=== PATIENT | female | born 1960 | race Caucasian/White ===

== ENCOUNTER 2016-12-19 07:55 | Day surgery (SDC) | payer SELFPAY ==
[~2016-12-19] VITALS: Ht 162.6 cm; Wt 135.0 kg
[~2016-12-19 07:55] MED LIST: ALEVE 220MG220 MG; BUDEPRION XL150 MG PO; CIPRO 500MG TA500 MG PO; COZAAR 50MG50 MG/TAB PO; FLAGYL500 MG PO; GLUCOPHAGE1000 MG PO; LEVEMIR100 U/ML SQ; NORCO 325 MG-51 TAB PO; UNABLE; VICTOZA6 MG/ML SQ; WELLBUTRIN XL150 MG PO; ZOCOR 10MG10 MG PO; ZOFRAN 4MG T4 MG/TAB PO; ZOLOFT 50MG50 MG PO
[2016-12-19] MEDS ORDERED: VICTOZA6 MG/ML SQ (08:45)
[2016-12-19] MEDS ORDERED: ZOCOR 40MG40 MG PO (08:47)
[2016-12-19] MEDS ORDERED: COZAAR100 MG PO (08:48)
[2016-12-19] MEDS ORDERED: KLONOPIN 1MG1 MG PO (08:49)
[2016-12-19 08:53] VITALS: BP 129/59; PULSE 67; TEMP 97.3
[2016-12-19 09:17] VITALS: BP 125/74; PULSE 64; PULSE 71; TEMP 97.4
[2016-12-19 09:45] VITALS: BP 119/65; PULSE 63
== END 2016-12-19 10:05 | disposition home or self-care (01) ==
LOC: SDCO 07:55
DX: K64.0 First degree hemorrhoids (principal); K57.30 Diverticulosis of large intestine without perforation or abscess without bleeding; E11.9 Type 2 diabetes mellitus without complications; E78.00 Pure hypercholesterolemia, unspecified; G47.30 Sleep apnea, unspecified; I10 Essential (primary) hypertension; Z79.84 Long term (current) use of oral hypoglycemic drugs; Z79.4 Long term (current) use of insulin; Z87.891 Personal history of nicotine dependence
CPT/HCPCS: OP; J2250; J3010; J7030

== ENCOUNTER 2017-09-16 23:06 | Emergency (ER) | payer SELFPAY ==
[~2017-09-16] VITALS: Ht 162.6 cm; Wt 136.4 kg
[~2017-09-16 23:06] MED LIST changes: +COZAAR100 MG PO; +KLONOPIN 1MG1 MG PO; +ZOCOR 40MG40 MG PO
[2017-09-16 23:10] VITALS: TEMP 99.8
[2017-09-17 00:06] LABS: BASO % 0.5 % (0.0-2.0); EOS # 0.2 (0.0-0.7); EOS % 2.4 % (0-4.0); GRAN # 5.3 (1.4-6.5); GRAN % 67.6 % (42.2-75.2); LYMPH # 1.6 (1.2-3.4); LYMPH % 20.7 % (20.0-51.0); MEAN CELL VOLUME 91 fl (80.0-100.0); MEAN CORPUSCULAR HGB CONC 31 g/dl (33.0-37.0); MONO # 0.6 (0.1-0.6); MONO % 7.8 % (1.7-9.3); PLATELET COUNT 168 K/mm3 (130-400); RED BLOOD COUNT 3.84 M/mm3 (4.10-5.30); WHITE BLOOD COUNT 7.9 K/mm3 (4.8-10.8)
[2017-09-17 00:08] LABS: HEMATOCRIT 34.8 % (37.0-47.0); HEMOGLOBIN 10.9 g/dl (12.5-16.0); MEAN CORPUSCULAR HEMOGLOBIN 28 pg (27.0-31.0)
[2017-09-17 00:12] LABS: PROTHROMBIN TIME 11.3 SECONDS (9.7-12.8)
[2017-09-17 00:15] LABS: PARTIAL THROMBOPLASTIN TIME 36.6 SECONDS (26.0-37.0)
[2017-09-17 00:17] LABS: ADJUSTED CALCIUM 9.6 mg/dL (8.4-10.2); ALANINE AMINOTRANSFERASE 42 U/L (9-52); ALBUMIN 3.8 gm/dL (3.5-5.0); ALKALINE PHOSPHATASE 144 U/L (50-136); ANION GAP 12 mmol/L (7-16); BILIRUBIN,TOTAL 0.4 mg/dL (0.0-1.0); BLOOD UREA NITROGEN 20 mg/dL (7-17); CALCIUM 9.4 mg/dL (8.4-10.2); CARBON DIOXIDE 22 mmol/L (22-30); CHLORIDE 103 mmol/L (98-107); CREATININE, serum 0.69 mg/dL (0.52-1.25); GLUCOSE 295 mg/dL (74-106); POTASSIUM 4.2 mmol/L (3.4-5.0); SODIUM 137 mmol/L (137-145); TOTAL PROTEIN 6.6 gm/dL (6.4-8.2)
[2017-09-17] MEDS ORDERED: ACTOS 15MG TAB15 MG PO (00:17)
[2017-09-17] MEDS ORDERED: GLUCOTROL10 MG PO (00:18)
[2017-09-17] MEDS ORDERED: ACTOS30 MG PO (00:18)
[2017-09-17 00:28] LABS: INFLUENZA A NEGATIVE; INFLUENZA B NEGATIVE
[2017-09-17 00:29] LABS: TROPONIN-I < 0.012 ng/mL (0.000-0.034)
[2017-09-17 02:22] VITALS: BP 171/89; PULSE 90
== END 2017-09-17 02:23 | disposition home or self-care (01) ==
LOC: COL.ER 23:06
PROVIDERS: Emergency Medicine
DX: J06.9 Acute upper respiratory infection, unspecified (principal); F41.9 Anxiety disorder, unspecified; E11.9 Type 2 diabetes mellitus without complications; E78.5 Hyperlipidemia, unspecified; I10 Essential (primary) hypertension; J45.909 Unspecified asthma, uncomplicated; Z87.891 Personal history of nicotine dependence; Z79.4 Long term (current) use of insulin
CPT/HCPCS: J7030

== ENCOUNTER 2019-05-07 06:49 | Day surgery (SDC) | payer OTHER ==
[~2019-05-07] VITALS: Ht 162.6 cm; Wt 130.0 kg
[2019-05-07] VITALS (9 sets, daily range): BP systolic 91–153; BP diastolic 33–57; PULSE 63–78; TEMP 98
[~2019-05-07 06:49] MED LIST changes: +ACTOS 15MG TAB15 MG PO; +ACTOS30 MG PO; +GLUCOTROL10 MG PO
[2019-05-07] MEDS ORDERED: FARXIGA10 PO (07:46)
[2019-05-07] MEDS ORDERED: JANUVIA 100MG100 MG PO (07:47)
[2019-05-07] MEDS ORDERED: AMARYL 2MG T2 MG/TAB PO (07:48)
[2019-05-07] MEDS ORDERED: ALEVE 220MG220 MG PO (07:49)
[2019-05-07] MEDS ORDERED: LANTUS SOLOS100 U/ML SQ (07:50)
--- NOTE | 2019-05-07 08:59 | NUR ---
Patient returns to room 6 per cart from surgery accompanied by Marichuy RN and patient arouses to verbal stimuli. Henrique wrap dressing dry on the right hand and fingers warm to touch. Temp 97.7. IV fluids infusing. Siderails up x2 and call light in reach. Spouse in room. Denies pain or nausea. Allowed to rest. Will continue to monitor.
--- NOTE | 2019-05-07 09:14 | NUR ---
Patient is sleeping and sats drop to 88% and placed on 2L per nasal cannula. States does use Cpap at night. Instructed to use today if she remains sleepy. Head flat and Yoni Olsen CRNA notified of low blood pressures. Will continue to monitor. Normal Saline infusing at 100cc/hr. Taking sip of grape juice.
[2019-05-07] MEDS ORDERED: TYLENOL W/COD1 UDTAB PO (09:15)
--- NOTE | 2019-05-07 09:29 | NUR ---
Head flat and allowed to rest. States that she remains sleepy. Spouse in room.
--- NOTE | 2019-05-07 09:44 | NUR ---
Blood pressure cuff repositioned and also manual pressure taken and unchanged. Remains on oxygen at 2L per nasal cannula. Spouse in room and will continue to monitor.
--- NOTE | 2019-05-07 09:59 | NUR ---
Resting with eyes closed and spouse in room. Taking sips of juice and water when awake.
--- NOTE | 2019-05-07 10:29 | NUR ---
More awake now and is eating few bites of muffin and drinking juice. Spouse took Tylenol #3 script to pharmacy to be filled.
--- NOTE | 2019-05-07 10:59 | NUR ---
Denies feeling dizzy or light headed. States that she feels sleepy.
--- NOTE | 2019-05-07 11:30 | NUR ---
Oxygen removed and sats 100%. Feeling less sleepy and eating muffin and drinking more juice.
--- NOTE | 2019-05-07 11:45 | NUR ---
Assisted ambulatory to the bathroom. Gait steady and is able to void and returns to room. Returns to room and IV all infused and discontinued. States that she is feeling more awake and less sleepy.
--- NOTE | 2019-05-07 12:00 | NUR ---
Patient dresses selft with minimal assist of spouse. Henrique wrap dressing dry on the right hand.
--- NOTE | 2019-05-07 12:15 | NUR ---
Given dismissal instructions and voices understanding of home cares and follow up as scheduled. Provided office number for questions and concerns.
--- NOTE | 2019-05-07 12:19 | NUR ---
Patient dismissed to home per private vehilce driven by spouse and taken to the front door per wheelchair and assisted into vehilce by RN.
== END 2019-05-07 12:19 | disposition home or self-care (01) ==
LOC: SDCO 06:49
DX: G56.01 Carpal tunnel syndrome, right upper limb (principal); M65.311 Trigger thumb, right thumb; I10 Essential (primary) hypertension; G47.33 Obstructive sleep apnea (adult) (pediatric); F32.9 Major depressive disorder, single episode, unspecified; F41.9 Anxiety disorder, unspecified; E11.9 Type 2 diabetes mellitus without complications; M19.90 Unspecified osteoarthritis, unspecified site; J44.9 Chronic obstructive pulmonary disease, unspecified; E78.00 Pure hypercholesterolemia, unspecified; G43.909 Migraine, unspecified, not intractable, without status migrainosus; Z79.84 Long term (current) use of oral hypoglycemic drugs; Z88.2 Allergy status to sulfonamides; Z88.8 Allergy status to other drugs, medicaments and biological substances; Z87.891 Personal history of nicotine dependence; Z88.5 Allergy status to narcotic agent; Z83.3 Family history of diabetes mellitus; Z82.49 Family history of ischemic heart disease and other diseases of the circulatory system; Z80.9 Family history of malignant neoplasm, unspecified
CPT/HCPCS: J0670; J0690; J1885; J2250; J2405; J2704; J3010; J7030

== ENCOUNTER → 2020-01-31 | Outpatient (CLI) | payer OTHER ==
[~2020-01-31] MED LIST changes: +ALEVE 220MG220 MG PO; +AMARYL 2MG T2 MG/TAB PO; +FARXIGA10 PO; +JANUVIA 100MG100 MG PO; +LANTUS SOLOS100 U/ML SQ; +TYLENOL W/COD1 UDTAB PO
== END ==
LOC: MC.RAD 12-17 07:45
DX: Z12.31 Encounter for screening mammogram for malignant neoplasm of breast (principal)

== ENCOUNTER 2020-08-03 10:20 | Inpatient (IN) | payer OTHER ==
[2020-08-03] VITALS (10 sets, daily range): BP systolic 109–159; BP diastolic 48–68; PULSE 54–84; TEMP 98.3–98.8
[~2020-08-03] VITALS: Ht 162.6 cm; Wt 139.1 kg
[2020-08-03 11:08] LABS: HEMATOCRIT 38.8 % (37.0-47.0); HEMOGLOBIN 12.5 g/dl (12.5-16.0); MEAN CELL VOLUME 87 fl (80.0-100.0); MEAN CORPUSCULAR HEMOGLOBIN 28 pg (27.0-31.0); MEAN CORPUSCULAR HGB CONC 32 g/dl (33.0-37.0); MEAN PLATELET VOLUME 9.8 fl (7.4-10.4); PLATELET COUNT 246 K/mm3 (130-400); RED BLOOD COUNT 4.48 M/mm3 (4.10-5.30); REDCELL DISTRIBUTION WIDTH-CV 14.3 % (11.5-14.5)
[2020-08-03 11:09] LABS: PROTHROMBIN TIME 10.9 SECONDS (9.7-12.8)
[2020-08-03 11:12] LABS: PARTIAL THROMBOPLASTIN TIME 45.4 SECONDS (26.0-37.0)
[2020-08-03 11:24] LABS: ALANINE AMINOTRANSFERASE 22 U/L (4-34); ALBUMIN 4.4 gm/dL (3.5-5.0); ALKALINE PHOSPHATASE 174 U/L (50-136); ANION GAP 11 mmol/L (7-16); AST,SGOT 25 U/L (15-37); BILIRUBIN,TOTAL 0.5 mg/dL (0.0-1.0); BLOOD UREA NITROGEN 20 mg/dL (7-17); CALCIUM 9.6 mg/dL (8.4-10.2); CARBON DIOXIDE 24 mmol/L (22-30); CHLORIDE 102 mmol/L (98-107); CREATININE, serum 0.73 (0.52-1.25); GLUCOSE 124 mg/dL (74-106); MAGNESIUM 1.6 mg/dL (1.6-2.3); POTASSIUM 4.7 mmol/L (3.4-5.0); SODIUM 137 mmol/L (137-145); TOTAL PROTEIN 7.5 gm/dL (6.4-8.2)
[2020-08-03] MEDS ORDERED: TRELEGY ELLIPT1 EACH IH (11:36)
[2020-08-03] MEDS ORDERED: NOVOLOG FLEX100 U/ML SQ (11:38)
[2020-08-03 11:39] LABS: BAND 4 % (0-10); BASOPHIL 1 % (0-2); EOSINOPHIL 4 % (0-4); LYMPHOCYTE 27 % (20.0-51.0); METAMYELOCYTE 2 % (0-0); NEUTROPHILS 59 % (42.0-75.2); PLATELET ESTIMATE NORMAL (NORMAL)
[2020-08-03] MEDS ORDERED: OZEMPIC0.25 MG/0. SQ (11:39)
[2020-08-03 11:45] LABS: TROPONIN-I < 0.012 ng/mL (0.000-0.035)
[2020-08-03] MEDS ORDERED: BASAGLAR K100 UNIT/1 SQ (13:24)
[2020-08-03] MEDS ORDERED: NOVOLOG 100U100 U/M1 SQ (13:25)
[2020-08-03] MEDS ORDERED: DIOVAN 160MG160 MG PO (13:27)
--- NOTE | 2020-08-03 15:07 | NUR ---
SEE MERGE DOCUMENTATION FOR MEDICATION ADMINISTRATION TIMES AND INTRA/POST PROCEDURE SEDATION ASSESSMENTS. RIGHT HAND BARBEAU TEST POSITIVE.
--- NOTE | 2020-08-03 16:00 | NUR ---
PATIENT IS A&O. VSS. DENIES CHEST PAIN OR SOA. VSS WITH TELE INPLACE. PATIENT IS SR WITH HR IN 70'S. HEART SOUNDS ARE REGULAR. RIGHT WRIST RADIAL SITE IS CD&I WITH AIR COMPRESSION BAND WITH 16CC OF AIR. HEART CATH WAS NEGATIVE. HEAD TO TOE ASSESSMENT WNL. NO C/O N/V. LIQUIDS & CRACKERS AT BEDSIDE. ORIENTED TO ROOM. CALL LIGHT IN REACH. AT BEDSIDE. PATIENT WILL DISCHARGE HOME LATER TONIGHT WHEN CRITERIA MEET.
[2020-08-03] MEDS ORDERED: ASPIRIN E.C. 8181 MG PO (16:37)
--- NOTE | 2020-08-03 18:00 | NUR ---
RELEASED 5CC OF AIR FROM RIGHT RADIAL COMPRESSION BAND. NOTED BLEEDING IMMEDIATELY. PUT AIR BACK INTO RADIAL BAND. WILL TRY AGAIN IN 30 MIN.
--- NOTE | 2020-08-03 18:30 | NUR ---
ATTEMPTED TO RELEASE 5CC OF AIR IN RIGHT RADIAL BAND, THIS TIME WAS ABLE TO REMOVE AIR WITHOUT BLEEDING. WILL MONITOR.
--- NOTE | 2020-08-03 21:29 | NUR ---
Patient ready for discharge. Went over discharge instructions with patient and and discontinued her IV. Patient denied any questions. Patient wheeled out with all her belongings to her husbands car to go home.
== END 2020-08-03 21:00 | disposition home or self-care (01) | DRG 287 ==
LOC: COL.ER 10:20 → SURG 11:42
PROVIDERS: Emergency Medicine; ADMIT Hospitalist
PROC: 4A023N7 Measurement of Cardiac Sampling and Pressure, Left Heart, Percutaneous Approach (ICD-10-PCS; principal; 2020-08-03)
PROC: B2111ZZ Fluoroscopy of Multiple Coronary Arteries using Low Osmolar Contrast (ICD-10-PCS; 2020-08-03)
DX: R07.9 Chest pain, unspecified (principal); Z68.43 Body mass index [BMI] 50.0-59.9, adult; R00.2 Palpitations; E11.9 Type 2 diabetes mellitus without complications; I10 Essential (primary) hypertension; E78.5 Hyperlipidemia, unspecified; E66.01 Morbid (severe) obesity due to excess calories; G47.33 Obstructive sleep apnea (adult) (pediatric); F41.9 Anxiety disorder, unspecified; F32.9 Major depressive disorder, single episode, unspecified; Z88.2 Allergy status to sulfonamides; Z88.1 Allergy status to other antibiotic agents; Z88.6 Allergy status to analgesic agent; Z79.4 Long term (current) use of insulin; Z87.891 Personal history of nicotine dependence
CPT/HCPCS: 99222-AI; 99238; J1644; J2250; J3010; Q9967

== ENCOUNTER 2023-12-28 05:20 | Day surgery (SDC) | payer SELFPAY ==
[~2023-12-28] VITALS: Ht 162.6 cm; Wt 131.7 kg
[~2023-12-28 05:20] MED LIST changes: +ASPIRIN E.C. 8181 MG PO; +BASAGLAR K100 UNIT/1 SQ; +DIOVAN 160MG160 MG PO; +NOVOLOG 100U100 U/M1 SQ; +NOVOLOG FLEX100 U/ML SQ; +OZEMPIC0.25 MG/0. SQ; +TRELEGY ELLIPT1 EACH IH
[2023-12-28] MEDS ORDERED: LR 1,000 ML IV SCH (06:00)
[2023-12-28] MEDS ORDERED: PROAIR HFA0.09 MG/AC IH (06:16)
[2023-12-28] MEDS ORDERED: RYBELSUS3 MG PO (06:17)
[2023-12-28] MEDS ORDERED: fentaNYL 50 MCG/ML 2 ML VIAL ONE ×2 (06:38→07:55)
[2023-12-28] MEDS ORDERED: Midazolam 2 MG/2 ML VIAL ONE (06:38)
[2023-12-28] MEDS ORDERED: Succinylcholine PF 200 MG/10 ML SYRINGE IV ONE (06:39)
[2023-12-28 06:56] VITALS: BP 155/47; PULSE 81; TEMP 97.8
[2023-12-28] MEDS ORDERED: oxyCODONE/Acetaminophen 5-325 MG TAB PO PRN (07:15)
[2023-12-28] MEDS ORDERED: ALEVE 220MG220 MG PO (07:19)
[2023-12-28] MEDS ORDERED: CRESTOR20 MG PO (07:20)
[2023-12-28] MEDS ORDERED: NORVASC 5MG5 MG/TAB PO (07:21)
[2023-12-28] MEDS ORDERED: DETROL LA4 PO (07:23)
[2023-12-28] MEDS ORDERED: Vecuronium 10 MG VIAL IV ONE (07:24)
[2023-12-28] MEDS ORDERED: ASPIRIN E.C. 8181 MG PO (07:24)
[2023-12-28] MEDS ORDERED: AZO-CRANBERRY450 MG (07:25)
[2023-12-28] MEDS ORDERED: AMARYL4 MG PO (07:30)
[2023-12-28] MEDS ORDERED: ePHEDrine 50 MG/ML VIAL ONE (07:38)
[2023-12-28] MEDS ORDERED: fentaNYL 50 MCG/ML 2 ML VIAL IV PRN (08:00)
[2023-12-28] MEDS ORDERED: Meperidine 50 MG/ML 1 ML VIAL IV PRN (08:00)
[2023-12-28] MEDS ORDERED: HYDROmorphone 2 MG/1 ML VIAL IV PRN (08:00)
[2023-12-28] MEDS ORDERED: droPERidol 2.5 MG/ML 2 ML VIAL IV PRN (08:00)
[2023-12-28] MEDS ORDERED: hydrALAZINE 20 MG/ML 1 ML VIAL IV PRN (08:00)
[2023-12-28] MEDS ORDERED: Ondansetron 4 MG/2 ML VIAL IV PRN (08:00)
[2023-12-28] MEDS ORDERED: LR 1,000 ML IV ONE (08:12)
[2023-12-28] MEDS ORDERED: Ondansetron 4 MG/2 ML VIAL ONE (08:12)
[2023-12-28] MEDS ORDERED: Ketorolac 30 MG/ML VIAL ONE (08:13)
[2023-12-28 09:57] VITALS: BP 116/72; PULSE 76; TEMP 97.5
[2023-12-28 10:10] VITALS: BP 104/70; PULSE 78
[2023-12-28 10:25] VITALS: BP 114/53; PULSE 78
[2023-12-28 10:40] VITALS: BP 124/51; PULSE 76
--- NOTE | 2023-12-28 11:00 | NUR ---
0957 RETURNS TO ROOM 8 PER CART WITH HOB ELEVATED 40 DEGREES. AWAKE, ALERT. RESP UNLABORED. VITAL SIGNS OBTAINED. DRESSING RIGHT SHOULDER CLEAN DRY AND INTACT. DENIES PAIN. NEURO/CIRC CHECKS RIGHT UPPER EXTREMITY INTACT. SLING/IMMOBILIZER ON. CALL LIGHT AT SIDE. IN ROOM 1010 HOB ELEVATED 50 DEGREES. TOLERATES PO JUICE WITHOUT NAUSEA 1015 DISCHARGE INSTRUCTIONS REVIEWED. PATIENT AND VERBALIZE UNDERSTANDING. COPY PROVIDED IN DISCHARGE FOLDER 1030 AWAKE, ALERT. DENIES PAIN. COUGHTS AND DEEP BREATHES WELL ON REQUEST. PATIENT REMINDED OF IMPORTANCE OF USING CPAP AT HOME WHILE RESTING 1045 IV SITE DC'D. PATIENT THEN STAND TRANSFERS WITH ASSISTANCE TO CHAIR AT BEDSIDE. DRESSED WITH ASSISTANCE, SLING/IMMOBILIZER ON, THEN TRANSFERS TO WHEELCHAIR FOR DISCHARGE
[2023-12-28 11:03] VITALS: BP 143/89; PULSE 77; TEMP 97
== END 2023-12-28 11:00 | disposition home or self-care (01) ==
LOC: SDCO 05:20
DX: S46.011A Strain of muscle(s) and tendon(s) of the rotator cuff of right shoulder, initial encounter (principal); M75.21 Bicipital tendinitis, right shoulder; E66.01 Morbid (severe) obesity due to excess calories; E11.9 Type 2 diabetes mellitus without complications; Z79.4 Long term (current) use of insulin; Z79.84 Long term (current) use of oral hypoglycemic drugs; Z85.41 Personal history of malignant neoplasm of cervix uteri; G47.33 Obstructive sleep apnea (adult) (pediatric); Z87.891 Personal history of nicotine dependence; Z68.42 Body mass index [BMI] 45.0-49.9, adult; W19.XXXA Unspecified fall, initial encounter; Y93.9 Activity, unspecified
CPT/HCPCS: A4619; C1713; J0665; J0690; J1885; J2250; J2405; J2704; J2765; J3010; J7120